=== PATIENT | female | born 1980 | race Caucasian/White ===

== ENCOUNTER 2018-03-08 12:39 | Emergency (ER) | payer MEDICARE, MEDICAID ==
[~2018-03-08] VITALS: Ht 185.4 cm; Wt 75.0 kg
[~2018-03-08 12:39] MED LIST: ALBU8.5H8 IH; ALBU8HFA PO; CYCL-1 PO; GUAI120L55 PO; IBUP-1594 PO; IBUP-1986 PO; NAPR500T6 PO; ONDA8TAB6 PO
[2018-03-08] MEDS ORDERED: ondansetron 4mg rapidly disintigrating tab PO ONE (13:10)
[2018-03-08] MEDS ORDERED: HYDROcodone/acetaminophen 5mg/325mg tablet PO ONE (13:10)
[2018-03-08] MEDS ORDERED: ONDA4TAB9 SL (14:00)
[2018-03-08] MEDS ORDERED: ACET1TAB25 PO (14:00)
[2018-03-08] MEDS ORDERED: IBUP-1984 PO (14:24)
[2018-03-08 14:27] VITALS: BP 164/96
== END 2018-03-08 14:29 | disposition home or self-care (01) ==
LOC: ER 12:39
DX: S13.9XXA Sprain of joints and ligaments of unspecified parts of neck, initial encounter (principal); S09.90XA Unspecified injury of head, initial encounter; I10 Essential (primary) hypertension; J45.909 Unspecified asthma, uncomplicated; G89.29 Other chronic pain; F12.90 Cannabis use, unspecified, uncomplicated; Z88.6 Allergy status to analgesic agent; Z79.899 Other long term (current) drug therapy; Z56.0 Unemployment, unspecified; Y04.8XXA Assault by other bodily force, initial encounter; Y93.89 Activity, other specified; Y92.89 Other specified places as the place of occurrence of the external cause; Y99.8 Other external cause status
CPT/HCPCS: 70450; 72125; 72128; 72131; 99284

== ENCOUNTER 2018-06-17 13:56 | Emergency (ER) | payer MEDICARE, MEDICAID ==
[~2018-06-17] VITALS: Ht 185.4 cm; Wt 77.3 kg
[2018-06-17 14:02] VITALS: BP 174/112
[2018-06-17] MEDS ORDERED: ketorolac tromethamine 15mg/ml inj. IM ONE (14:45)
[2018-06-17] MEDS ORDERED: IBUP-1984 PO (15:17)
== END 2018-06-17 15:22 | disposition home or self-care (01) ==
LOC: ER 13:56
DX: S99.922A Unspecified injury of left foot, initial encounter (principal); S99.912A Unspecified injury of left ankle, initial encounter; S89.92XA Unspecified injury of left lower leg, initial encounter; I10 Essential (primary) hypertension; J45.909 Unspecified asthma, uncomplicated; G89.29 Other chronic pain; F12.90 Cannabis use, unspecified, uncomplicated; Z98.51 Tubal ligation status; Z98.890 Other specified postprocedural states; Z56.0 Unemployment, unspecified; Z88.5 Allergy status to narcotic agent; Z79.899 Other long term (current) drug therapy; X50.1XXA Overexertion from prolonged static or awkward postures, initial encounter; Y93.9 Activity, unspecified; Y92.89 Other specified places as the place of occurrence of the external cause; Y99.8 Other external cause status
CPT/HCPCS: 73564; 73610; 73630; 96372; 99283; J1885

== ENCOUNTER 2018-10-25 09:57 | Emergency (ER) | payer MEDICARE, MEDICAID ==
[~2018-10-25] VITALS: Ht 185.4 cm; Wt 72.7 kg
[2018-10-25 10:01] VITALS: BP 158/100
[2018-10-25] MEDS ORDERED: ACET-3067 PO (10:44)
[2018-10-25] MEDS ORDERED: PENI500T2 PO (10:44)
[2018-10-25] MEDS ORDERED: HYDROcodone/acetaminophen 5mg/325mg tablet PO ONE (10:45)
[2018-10-25] MEDS ORDERED: ketorolac trometh inj. 60 MG/2 ML VIAL IM ONE (10:45)
== END 2018-10-25 11:24 | disposition home or self-care (01) ==
LOC: ER 09:57
DX: K02.9 Dental caries, unspecified (principal); H92.02 Otalgia, left ear; M54.2 Cervicalgia; I10 Essential (primary) hypertension; F12.90 Cannabis use, unspecified, uncomplicated; J45.909 Unspecified asthma, uncomplicated; G89.29 Other chronic pain; Z87.442 Personal history of urinary calculi; Z98.890 Other specified postprocedural states; Z98.51 Tubal ligation status; Z56.0 Unemployment, unspecified
CPT/HCPCS: 96372; 99283; J1885

== ENCOUNTER 2018-12-21 16:55 | Emergency (ER) | payer MEDICARE, MEDICAID ==
[~2018-12-21] VITALS: Ht 185.4 cm; Wt 70.0 kg
[2018-12-21 18:48] LABS: CLARITY,URINE SLIGHTLY CLOUDY (Clear); COLOR,URINE YELLOW (Yellow); GLUCOSE, URINE NEGATIVE (Neg); KETONES,URINE NEGATIVE (Neg); LEUKOCYTE ESTERASE ,URINE NEGATIVE (Neg); NITRITES, URINE NEGATIVE (Neg); OCCULT BLOOD,URINE NEGATIVE (Neg); PROTEIN,URINE 30 mg/dl (Neg); UROBILINOGEN,URINE 0.2 E.U/dL (0.2-1.0)
[2018-12-21 18:49] LABS: URINE HCG NEGATIVE (NEG)
[2018-12-21 18:52] LABS: BASOPHILS % (AUTO) 0.6 % (0-1); EOSINOPHILS # (AUTO) 0.1 X10'3 (0-0.9); EOSINOPHILS % (AUTO) 2.8 % (0-6); HEMOGLOBIN 12.9 g/dl (12.0-16.0); LYMPHOCYTES # (AUTO) 1.1 X10'3 (1.1-4.8); LYMPHOCYTES % (AUTO) 24.8 % (21-51); MEAN CORPUSCULAR HEMOGLOBIN 31.9 PG (27.0-31.0); MEAN CORPUSCULAR HGB CONC 33.1 g/dL (33.0-36.5); MEAN CORPUSCULAR VOLUME 96.4 FL (78-98); MONOCYTES # (AUTO) 0.4 X10'3 (0-0.9); MONOCYTES % (AUTO) 8.2 % (2-12); NEUTROPHILS # (AUTO) 2.9 X10'3 (1.8-7.7); NEUTROPHILS % (AUTO) 63.6 % (42-75); PLATELET COUNT 141 X10'3 (140-440); RED BLOOD COUNT 4.05 X10'6 (4.20-5.60); WHITE BLOOD COUNT 4.6 X10'3 (4.5-11.0)
[2018-12-21 18:53] LABS: UA COLLECTION TYPE CLN CATCH MIDSTREAM
[2018-12-21 18:54] LABS: BACTERIA,URINE FEW /HPF (Neg); MUCUS STRANDS MANY /LPF (Neg); RBC,URINE NONE SEEN /HPF (0-2); SQUAMOUS EPITHELIAL CELL,UR MANY /LPF (FEW); WBC,URINE 0-4 /HPF (0-4)
[2018-12-21 18:55] LABS: YEAST FEW /HPF (NEGATIVE)
[2018-12-21 19:01] LABS: ALBUMIN 3.5 G/DL (3.4-5.0); ANION GAP 5 (8-16); BILIRUBIN,TOTAL 0.4 MG/DL (0.1-1.0); BLOOD UREA NITROGEN 18 MG/DL (7-18); BUN/CREATININE RATIO 23.1 (6.6-38.0); CALCIUM 9.1 MG/DL (8.5-10.1); CHLORIDE 107 MMOL/L (99-107); CREATININE 0.78 MG/DL (0.40-0.90); GLUCOSE 88 MG/DL (70-104); POTASSIUM 3.7 MMOL/L (3.5-5.1); SODIUM 140 MMOL/L (135-145); TOTAL CARBON DIOXIDE 27.9 MMOL/L (24-32); TOTAL PROTEIN 6.8 G/DL (6.4-8.2); eGFR 83 ML/MIN
[2018-12-21 19:02] LABS: ALANINE AMINOTRANSFERASE 20 U/L (12-78); ALBUMIN/GLOBULIN RATIO 1.1 (1.1-1.5); ALKALINE PHOSPHATASE 58 IU/L (46-116); ASPARTATE AMINO TRANSFERASE 13 U/L (10-37)
--- NOTE | 2018-12-21 19:07 | NUR ---
PT IS RESTING QUIETLY ON [place], FRIEND AT BEDSIDE, PT C/O RIGHT SIDED ABD PAIN, +NAUSEA, +"DRY HEAVING" X4 DAYS, WAITING TO BE EVALUATED BY PROVIDER
[2018-12-21] MEDS ORDERED: ketorolac trometh. 30mg/ml inj. IV ONE (19:20)
[2018-12-21 19:26] LABS: LIPASE 227 U/L (73-393)
[2018-12-21] MEDS ORDERED: iohexol 300mg/ml 100ml inj. ONE (20:24)
[2018-12-21 20:37] VITALS: BP 147/88
--- NOTE | 2018-12-21 20:37 | NUR ---
PT HAS HAD CT, WAITING FOR RESULT, PT SAID ABD PAIN DID GO AWAY BUT NOW IT IS 01/20, PT WOULD LIKE TO GO HOME AND HAVE RESULTS CALLED TO HER
[2018-12-21 22:22] LABS: URINE AMPHETAMINE SCREEN POSITIVE (Neg); URINE BARBITUATE SCREEN NEGATIVE (Neg); URINE BENZODIAZEPINES SCREEN NEGATIVE (Neg); URINE CANNABINOID SCREEN POSITIVE (Neg); URINE COCAINE SCREEN NEGATIVE (Neg); URINE METHADONE SCREEN NEGATIVE (Neg); URINE OPIATE SCREEN NEGATIVE (Neg); URINE PHENCYCLIDINE SCREEN NEGATIVE (Neg)
== END 2018-12-21 21:47 | disposition left against medical advice (07) ==
LOC: ER 16:56
DX: R10.9 Unspecified abdominal pain (principal); F15.10 Other stimulant abuse, uncomplicated; R42 Dizziness and giddiness; J45.909 Unspecified asthma, uncomplicated; I10 Essential (primary) hypertension; G89.29 Other chronic pain; F41.9 Anxiety disorder, unspecified; F32.9 Major depressive disorder, single episode, unspecified; F12.90 Cannabis use, unspecified, uncomplicated; Q61.3 Polycystic kidney, unspecified; Z56.0 Unemployment, unspecified; Z98.890 Other specified postprocedural states; Z98.51 Tubal ligation status; Z88.6 Allergy status to analgesic agent
CPT/HCPCS: 36415; 74176; 80053; 80305; 81001; 81025; 83690; 85025; 96374; 99284; J1885; Q9967

== ENCOUNTER 2021-01-18 10:35 | Emergency (ER) | payer MEDICARE, MEDICAID ==
[~2021-01-18] VITALS: Ht 182.9 cm; Wt 75.0 kg
[~2021-01-18 10:35] MED LIST changes: +ALBU8.5H17 IH; -ALBU8.5H8 IH
[2021-01-18 11:16] VITALS: BP 164/98
--- NOTE | 2021-01-18 12:09 | NUR ---
LAB CALLED PT IS COVID POSITIVE
[2021-01-18] MEDS ORDERED: GUAI400T92 PO (12:33)
== END 2021-01-18 12:45 | disposition home or self-care (01) ==
LOC: ER 10:36
DX: U07.1 COVID-19 (principal); R50.9 Fever, unspecified; F17.210 Nicotine dependence, cigarettes, uncomplicated; I10 Essential (primary) hypertension; J45.909 Unspecified asthma, uncomplicated; G89.29 Other chronic pain; N18.9 Chronic kidney disease, unspecified; F12.90 Cannabis use, unspecified, uncomplicated; Z56.0 Unemployment, unspecified; Z98.891 History of uterine scar from previous surgery; Z98.51 Tubal ligation status; Z88.6 Allergy status to analgesic agent; Z79.899 Other long term (current) drug therapy
CPT/HCPCS: 87635; 99283; C9803